=== PATIENT | male | born 1965 | race Caucasian/White ===

== ENCOUNTER 2017-12-02 13:15 | Emergency (ER) | payer MEDICARE ==
[~2017-12-02] VITALS: Ht 167.6 cm; Wt 77.3 kg
[~2017-12-02 13:15] MED LIST: NOCURR
[2017-12-02 13:22] VITALS: BP 123/79
[2017-12-02 14:11] LABS: APPEARANCE,URINE CLEAR (CLEAR); BILIRUBIN,URINE NEGATIVE (NEGATIVE); GLUCOSE, URINE (UA) NEGATIVE (NEGATIVE); KETONES,URINE NEGATIVE (NEGATIVE); LEUKOCYTE ESTERASE ,URINE NEGATIVE (NEGATIVE); NITRATE,URINE NEGATIVE (NEGATIVE); OCCULT BLOOD,URINE NEGATIVE (NEGATIVE); PROTEIN,URINE NEGATIVE (NEGATIVE); UROBILINOGEN,URINE 0.2 mg/dL (<=1.0)
[2017-12-02] MEDS ORDERED: IBUPROFEN 600 MG TABLET PO ONE (14:30)
[2017-12-02] MEDS ORDERED: AZITHROMYCIN 250 MG TABLET PO ONE (14:30)
[2017-12-02] MEDS ORDERED: CefTRIAXone SODIUM 1 GM/VIAL IM ONE (14:30)
[2017-12-02 14:32] LABS: BACTERIA,URINE None Seen /HPF (None Seen); RBC,URINE None Seen /HPF (0-2); RENAL EPITHELIAL CELLS,URINE Few /LPF (None Seen); WBC,URINE None Seen /HPF (0-5)
[2017-12-02] MEDS ORDERED: LIDOCAINE HCL/PF 1% 2 ML VIAL ONE (14:35)
== END 2017-12-02 15:19 | disposition home or self-care (01) ==
LOC: EMS 13:17
DX: N45.1 Epididymitis (principal)
CPT/HCPCS: 76870; 81001; 87491; 87591; 99285; J0696; J3490

== ENCOUNTER 2018-08-17 10:39 | Emergency (ER) | payer OTHER, MEDICAID ==
[~2018-08-17] VITALS: Ht 165.1 cm; Wt 77.3 kg
[2018-08-17] MEDS ORDERED: PANT40TA25 PO (10:44)
[2018-08-17] MEDS ORDERED: QUET200T PO (10:44)
[2018-08-17 11:13] VITALS: BP 140/90
== END 2018-08-17 11:48 | disposition home or self-care (01) ==
LOC: EMS 10:40
DX: L25.9 Unspecified contact dermatitis, unspecified cause (principal); K64.4 Residual hemorrhoidal skin tags; Z79.899 Other long term (current) drug therapy

== ENCOUNTER 2019-07-22 09:03 | Emergency (ER) | payer OTHER ==
[~2019-07-22] VITALS: Ht 167.6 cm; Wt 75.0 kg
[~2019-07-22 09:03] MED LIST changes: +DIVA-78 PO; +FERR-89 PO; -NOCURR; +OMEG-135 PO; +QUET300T2 PO; +SERT50TA12 PO
[2019-07-22] MEDS ORDERED: FentaNYL CITRATE-PF 100 MCG/2 ML VIAL IVP ONE (09:08)
[2019-07-22] MEDS ORDERED: LIDOCAINE/PF 2% 5 ML VIAL IM ONE (09:08)
[2019-07-22] MEDS ORDERED: PROPOFOL 1% 20 ML VIAL IVP ONE ×2 (09:08→15:00)
[2019-07-22] MEDS ORDERED: OxyCODONE HCL/ACETAMINOPHEN 5-325 MG TABLET PO ONE ×2 (09:45→10:30)
[2019-07-22] MEDS ORDERED: MORPHINE SULFATE 4 MG/ML SYRINGE IVP ONE (10:30)
[2019-07-22] MEDS ORDERED: AmLODIPine BESYLATE 5 MG TABLET PO ONE (11:30)
[2019-07-22] MEDS ORDERED: HYDROmorphone 2 MG/ML SYRINGE IVP ONE ×2 (12:30→13:30)
[2019-07-22] MEDS ORDERED: SODIUM CHLORIDE 0.9% 1,000 ML IV ONE (15:15)
[2019-07-22 17:55] VITALS: BP 154/94
== END 2019-07-22 18:06 | disposition home or self-care (01) ==
LOC: EMS 09:07
DX: S82.841A Displaced bimalleolar fracture of right lower leg, initial encounter for closed fracture (principal); S93.121A Dislocation of metatarsophalangeal joint of right great toe, initial encounter; W11.XXXA Fall on and from ladder, initial encounter; Y93.89 Activity, other specified; Y92.89 Other specified places as the place of occurrence of the external cause; Y99.8 Other external cause status
CPT/HCPCS: 27810; 28630; 29505; 73590; 73610; 73630; 93005; 96374; 96375; 96376; 99285; J1170; J2270; J2704; J3010; J3490

== ENCOUNTER 2020-05-07 12:56 | Emergency (ER) | payer OTHER ==
[~2020-05-07] VITALS: Ht 167.6 cm; Wt 73.4 kg
[~2020-05-07 12:56] MED LIST changes: +DIVA-112 PO; -DIVA-78 PO
[2020-05-07 13:35] LABS: BASOPHILS % (AUTO) 1.1 % (0.0-2.0); EOSINOPHILS % (AUTO) 0.3 % (1.0-6.0); HEMOGLOBIN 14.2 g/dL (13.5-17.5); LYMPHOCYTES # (AUTO) 1.1 K/uL (1.0-4.8); MEAN CORPUSCULAR HGB CONC 33.8 G/dL (31.0-37.0); MEAN CORPUSCULAR VOLUME 101 fL (80-100); MONOCYTES # (AUTO) 0.4 K/uL (0.1-1.0); NEUTROPHILS # (AUTO) 2.5 K/uL (1.8-7.7); NEUTROPHILS % (AUTO) 61.6 % (40.0-70.0); PLATELET COUNT (AUTO) 168 K/uL (150-450); RED BLOOD CELL COUNT(AUTO) 4.17 MIL/uL (4.50-5.90)
[2020-05-07 13:44] LABS: ANION GAP 16 mmol/L (8-16); CALCIUM, TOTAL 9.4 mg/dL (8.8-10.5); CARBON DIOXIDE 24 mmol/L (22-29); CHLORIDE 101 mmol/L (98-107); CREATININE 0.67 mg/dL (0.60-1.30); GLOMERULAR FILTR. RATE CALC > 60 mL/min (>60); GLUCOSE,RANDOM 137 mg/dL (70-110); POTASSIUM 3.2 mmol/L (3.5-5.1); SODIUM SERUM 141 mmol/L (136-145); UREA NITROGEN, BLOOD 11 mg/dL (7-18)
[2020-05-07 13:50] LABS: ALANINE AMINOTRANSFERASE 130 U/L (12-78); ALBUMIN 3.8 g/dL (3.4-5.0); ALKALINE PHOSPHATASE 84 U/L (46-116); ASPARTATE AMINOTRANSFERASE 194 U/L (15-37); BILIRUBIN,TOTAL 1.4 mg/dL (0.1-1.0); LIPASE 227 U/L (73-393); TOTAL PROTEIN, SERUM 7.8 g/dL (6.4-8.2)
[2020-05-07 13:52] LABS: B-TYPE NATRIURETIC PEPTIDE < 5 pg/mL (0-100)
[2020-05-07 14:37] LABS: AMPHET/METH SCREEN,URINE NEGATIVE (NEGATIVE); BARBITURATE SCREEN, URINE NEGATIVE (NEGATIVE); BENZODIAZEPINES SCREEN,URINE NEGATIVE (NEGATIVE); CANNABINOID SCREEN,URINE NEGATIVE (NEGATIVE); COCAINE SCREEN,URINE NEGATIVE (NEGATIVE); METHADONE SCREEN, URINE NEGATIVE (NEGATIVE); OPIATE SCREEN,URINE NEGATIVE (NEGATIVE)
[2020-05-07 14:38] LABS: PHENCYCLIDINE SCREEN,URINE NEGATIVE (NEGATIVE)
[2020-05-07] MEDS ORDERED: FAMOTIDINE 10 MG/ML 2 ML VIAL IVP ONE (14:45)
[2020-05-07] MEDS ORDERED: PB/HYOSCY/ATR/SCOP/LIDO/MAALOX 55 ML BOTTLE PO ONE (14:45)
[2020-05-07] MEDS ORDERED: LORazepam 2 MG TABLET PO ONE (15:00)
[2020-05-07] MEDS ORDERED: LORazepam 2 MG/ML VIAL IM ONE (15:00)
[2020-05-07] MEDS ORDERED: LORazepam 2 MG/ML VIAL IVP ONE (15:00)
[2020-05-07] MEDS ORDERED: POTASSIUM CHLORIDE 20 MEQ ER TABLET PO ONE (15:00)
[2020-05-07] MEDS ORDERED: FAMOTIDINE 20 MG TABLET PO ONE (15:00)
[2020-05-07] MEDS ORDERED: SODIUM CHLORIDE 0.9% 100 ML ONE (15:06)
[2020-05-07] MEDS ORDERED: IOVERSOL 350 MG/ML 150 ML VIAL ONE (15:07)
[2020-05-07] MEDS ORDERED: SODIUM CHLORIDE 0.9% 1,000 ML IV ONE (16:30)
[2020-05-07 17:45] VITALS: BP 121/80
== END 2020-05-07 18:00 | disposition home or self-care (01) ==
LOC: EMS 12:58
DX: K29.20 Alcoholic gastritis without bleeding (principal); F10.129 Alcohol abuse with intoxication, unspecified; K70.10 Alcoholic hepatitis without ascites; E87.6 Hypokalemia; R41.82 Altered mental status, unspecified; K22.9 Disease of esophagus, unspecified; F31.9 Bipolar disorder, unspecified; I25.10 Atherosclerotic heart disease of native coronary artery without angina pectoris; F20.9 Schizophrenia, unspecified; Y90.7 Blood alcohol level of 200-239 mg/100 ml
CPT/HCPCS: 36415; 71045; 71275; 74175; 80053; 80307; 83690; 83880; 84484; 85025; 93005; 96361; 96374; 99285; G0480; J3490; J7030; J7050; Q9967; J2060

== ENCOUNTER 2024-01-17 14:10 | Inpatient (IN) | payer MEDICARE, OTHER ==
[~2024-01-17] VITALS: Ht 165.1 cm; Wt 68.8 kg
[2024-01-17 14:31] LABS: BASOPHILS % (AUTO) 0.1 % (0.0-2.0); EOSINOPHILS % (AUTO) 0.2 % (1.0-6.0); HEMATOCRIT 41.8 % (41-53); HEMOGLOBIN 14.8 g/dL (13.5-17.5); LYMPHOCYTES # (AUTO) 1.4 K/uL (1.0-4.8); LYMPHOCYTES % (AUTO) 16.9 % (22.0-44.0); MEAN CORPUSCULAR HEMOGLOBIN 35.5 pg (26.0-34.0); MEAN CORPUSCULAR HGB CONC 35.4 G/dL (31.0-37.0); MEAN CORPUSCULAR VOLUME 100 fL (80-100); MONOCYTES # (AUTO) 0.7 K/uL (0.1-1.0); MONOCYTES % (AUTO) 8.7 % (2.0-9.0); NEUTROPHILS # (AUTO) 6.3 K/uL (1.8-7.7); NEUTROPHILS % (AUTO) 74.1 % (40.0-70.0); PLATELET COUNT (AUTO) 254 K/uL (150-450); RED BLOOD CELL COUNT(AUTO) 4.16 MIL/uL (4.50-5.90); RED CELL DISTRIBUTION WIDTH 13.1 % (11.5-14.5); WHITE BLOOD COUNT (AUTO) 8.4 K/uL (4.5-11.0)
[2024-01-17 14:46] LABS: ALANINE AMINOTRANSFERASE 27 U/L (12-78); ALBUMIN 3.3 g/dL (3.4-5.0); ALKALINE PHOSPHATASE 91 U/L (46-116); ANION GAP 15 mmol/L (8-16); ASPARTATE AMINOTRANSFERASE 18 U/L (15-37); BILIRUBIN,TOTAL 1.6 mg/dL (0.1-1.0); CARBON DIOXIDE 24 mmol/L (22-29); CHLORIDE 94 mmol/L (98-107); CREATININE 0.67 mg/dL (0.60-1.30); GLOMERULAR FILTR. RATE CALC > 60 mL/min (>60); GLUCOSE,RANDOM 85 mg/dL (70-110); POTASSIUM 2.9 mmol/L (3.5-5.1); SODIUM SERUM 133 mmol/L (136-145); UREA NITROGEN, BLOOD 7 mg/dL (7-18)
[2024-01-17 14:52] LABS: ALCOHOL, BLOOD (SERUM) 64 mg/dL (0-10)
[2024-01-17 14:56] LABS: RBC MORPHOLOGY COMMENT ABNORMAL RBC MORPH
[2024-01-17 17:03] LABS: PH,URINE DRUG SCREEN 5.5 (5.0-8.0)
[2024-01-17 17:18] LABS: ALCOHOL, URINE DRUG SCREEN POSITIVE (NEGATIVE); AMPHET/METH SCREEN,URINE NEGATIVE (NEGATIVE); BARBITURATE SCREEN, URINE NEGATIVE (NEGATIVE); BENZODIAZEPINES SCREEN,URINE NEGATIVE (NEGATIVE); CANNABINOID SCREEN,URINE POSITIVE (NEGATIVE); COCAINE SCREEN,URINE NEGATIVE (NEGATIVE); METHADONE SCREEN, URINE NEGATIVE (NEGATIVE); OPIATE SCREEN,URINE NEGATIVE (NEGATIVE); PHENCYCLIDINE SCREEN,URINE NEGATIVE (NEGATIVE)
[2024-01-17] MEDS: SODIUM CHLORIDE 0.9% 1,000 ML IV ONE (17:33)
[2024-01-17] MEDS: POTASSIUM CHLORIDE 20 MEQ ER TABLET PO ONE (17:45)
[2024-01-17] MEDS: FAMOTIDINE 20 MG/2 ML VIAL IVP ONE (17:55)
[2024-01-17] MEDS: ONDANSETRON HCL 4 MG/2 ML VIAL IVP ONE (17:55)
[2024-01-17] MEDS: POTASSIUM CHL 10 MEQ/WATER 50 ML IV ONE (17:56)
[2024-01-17] MEDS: LORazepam 2 MG/ML VIAL IVP ONE (18:39)
[2024-01-17] MEDS ORDERED: ONDANSETRON HCL 4 MG/2 ML VIAL IVP PRN (18:45)
[2024-01-17] MEDS ORDERED: ACETAMINOPHEN 325 MG TABLET PO PRN (18:45)
[2024-01-17] MEDS ORDERED: 0.9% SODIUM CHLORIDE 10 ML SYRINGE IVP PRN (18:45)
[2024-01-17 18:55] LABS: COVID AG,FIA SOURCE NASAL SWAB
[2024-01-17 19:20] LABS: SARS-COV2 (COVID) ANTIGEN,FIA Negative (Negative)
[2024-01-17] MEDS ORDERED: BISACODYL 10 MG RECTAL RECTAL SUPPOSITORY PR PRN (21:45)
[2024-01-17] MEDS ORDERED: DIAZEPAM 10 MG TABLET PO PRN (21:45)
[2024-01-17] MEDS ORDERED: MORPHINE SULFATE 2 MG/ML SYRINGE IVP PRN (21:45)
[2024-01-17] MEDS ORDERED: POTASSIUM CHL 10 MEQ/WATER 50 ML IV PRN (21:45)
[2024-01-17] MEDS: 1: MAGNESIUM SULFATE 2 GM, MVI, ADULT NO.1 WITH VIT K 10 ML, THIAMINE 100 MG, FOLIC ACID IV SCH (23:16)
[2024-01-18] MEDS: HEPARIN SODIUM,PORCINE 5,000 UNITS/ML VIAL SQ SCH (00:14)
[2024-01-18 04:57] VITALS: BP 129/80; PULSE 93; RESP 18; TEMP 101.3
[2024-01-18 07:45] LABS: BASOPHILS % (AUTO) 0.2 % (0.0-2.0); EOSINOPHILS % (AUTO) 0.1 % (1.0-6.0); HEMOGLOBIN 13.4 g/dL (13.5-17.5); LYMPHOCYTES # (AUTO) 0.8 K/uL (1.0-4.8); LYMPHOCYTES % (AUTO) 6.5 % (22.0-44.0); MEAN CORPUSCULAR HEMOGLOBIN 35.3 pg (26.0-34.0); MEAN CORPUSCULAR HGB CONC 35.4 G/dL (31.0-37.0); MEAN CORPUSCULAR VOLUME 100 fL (80-100); MONOCYTES % (AUTO) 8.3 % (2.0-9.0); NEUTROPHILS # (AUTO) 10.2 K/uL (1.8-7.7); NEUTROPHILS % (AUTO) 84.9 % (40.0-70.0); PLATELET COUNT (AUTO) 252 K/uL (150-450); RED CELL DISTRIBUTION WIDTH 13.1 % (11.5-14.5)
[2024-01-18 08:54] VITALS: BP 121/64; PULSE 86; RESP 20; TEMP 98.7
[2024-01-18] MEDS: ACETAMINOPHEN 325 MG TABLET PO PRN (08:57)
[2024-01-18] MEDS: DOCUSATE SODIUM 100 MG CAPSULE PO SCH (08:57)
[2024-01-18] MEDS: PANTOPRAZOLE SODIUM 40 MG DR TABLET PO SCH (08:57)
[2024-01-18] MEDS: DIAZEPAM 10 MG TABLET PO SCH (08:58)
[2024-01-18 10:58] LABS: LACTIC ACID 1.2 mmol/L (0.4-2.0)
[2024-01-18 11:05] LABS: ALANINE AMINOTRANSFERASE 23 U/L (12-78); ALBUMIN 2.8 g/dL (3.4-5.0); ALKALINE PHOSPHATASE 94 U/L (46-116); ANION GAP 16 mmol/L (8-16); ASPARTATE AMINOTRANSFERASE 21 U/L (15-37); BILIRUBIN,TOTAL 2.2 mg/dL (0.1-1.0); CALCIUM, TOTAL 8.5 mg/dL (8.8-10.5); CARBON DIOXIDE 19 mmol/L (22-29); CHLORIDE 94 mmol/L (98-107); CREATININE 0.66 mg/dL (0.60-1.30); GLOMERULAR FILTR. RATE CALC > 60 mL/min (>60); GLUCOSE,RANDOM 92 mg/dL (70-110); POTASSIUM 3.8 mmol/L (3.5-5.1); SODIUM SERUM 129 mmol/L (136-145); TOTAL PROTEIN, SERUM 6.9 g/dL (6.4-8.2); UREA NITROGEN, BLOOD 9 mg/dL (7-18)
[2024-01-18] MEDS: ONDANSETRON HCL 4 MG/2 ML VIAL IVP PRN (11:55)
[2024-01-18 12:20] LABS: APPEARANCE,URINE CLEAR (CLEAR); BILIRUBIN,URINE NEGATIVE (NEGATIVE); COLOR,URINE LIGHT YELLOW (YELLOW); GLUCOSE, URINE (UA) NEGATIVE (NEGATIVE); LEUKOCYTE ESTERASE ,URINE NEGATIVE (NEGATIVE); NITRATE,URINE NEGATIVE (NEGATIVE); OCCULT BLOOD,URINE NEGATIVE (NEGATIVE); PROTEIN,URINE NEGATIVE (NEGATIVE); SPECIFIC GRAVITIY, URINE 1.009 (1.003-1.030); UROBILINOGEN,URINE <=1.0 mg/dL (<=1.0)
[2024-01-18 12:59] VITALS: BP 144/83; PULSE 90; RESP 20; TEMP 98
[2024-01-18] MEDS: ESCITALOPRAM OXALATE 10 MG TABLET PO SCH (14:55)
[2024-01-18 15:31] VITALS: BP 113/76; PULSE 71; RESP 20; TEMP 98.2
[2024-01-18 19:49] VITALS: BP 124/77; PULSE 97; RESP 18; TEMP 98
[2024-01-18] MEDS: MELATONIN 5 MG TABLET PO SCH (20:41)
[2024-01-18] MEDS: MAGNESIUM HYDROXIDE SUSPENSION 30 ML UDCUP PO PRN (20:43)
[2024-01-18] MEDS: HYDROCODONE/ACETAMINOPHEN 5-325 MG TABLET PO PRN (20:50)
[2024-01-18 21:41] LABS: GLUCOMETER DEV NAME(LOC) 5S.1B; GLUCOSE,POINT OF CARE 97 MG/DL (70-110)
[2024-01-18] MEDS: ZOLPIDEM TARTRATE 5 MG TABLET PO PRN (22:50)
[2024-01-18] MEDS: DIAZEPAM 10 MG TABLET PO PRN (22:50)
[2024-01-19] VITALS (7 sets, daily range): BP systolic 121–179; BP diastolic 75–97; PULSE 66–105; RESP 18–19; TEMP 98–100.5; O2SAT 94
[2024-01-19] MEDS ORDERED: HALOPERIDOL LACTATE 5 MG/ML VIAL IM PRN (04:15)
[2024-01-19 06:50] LABS: BASOPHILS % (AUTO) 0.3 % (0.0-2.0); EOSINOPHILS % (AUTO) 0.1 % (1.0-6.0); HEMATOCRIT 37.3 % (41-53); HEMOGLOBIN 13.3 g/dL (13.5-17.5); LYMPHOCYTES # (AUTO) 1.2 K/uL (1.0-4.8); LYMPHOCYTES % (AUTO) 9.3 % (22.0-44.0); MEAN CORPUSCULAR HEMOGLOBIN 35.7 pg (26.0-34.0); MEAN CORPUSCULAR HGB CONC 35.7 G/dL (31.0-37.0); MEAN CORPUSCULAR VOLUME 100 fL (80-100); MONOCYTES # (AUTO) 1.4 K/uL (0.1-1.0); MONOCYTES % (AUTO) 11.6 % (2.0-9.0); NEUTROPHILS # (AUTO) 9.8 K/uL (1.8-7.7); NEUTROPHILS % (AUTO) 78.7 % (40.0-70.0); PLATELET COUNT (AUTO) 275 K/uL (150-450); RED BLOOD CELL COUNT(AUTO) 3.73 MIL/uL (4.50-5.90); WHITE BLOOD COUNT (AUTO) 12.5 K/uL (4.5-11.0)
[2024-01-19 07:02] LABS: ANION GAP 9 mmol/L (8-16); CALCIUM, TOTAL 8.5 mg/dL (8.8-10.5); CARBON DIOXIDE 26 mmol/L (22-29); CHLORIDE 94 mmol/L (98-107); CREATININE 0.71 mg/dL (0.60-1.30); GLOMERULAR FILTR. RATE CALC > 60 mL/min (>60); GLUCOSE,RANDOM 103 mg/dL (70-110); POTASSIUM 3.3 mmol/L (3.5-5.1); SODIUM SERUM 129 mmol/L (136-145); UREA NITROGEN, BLOOD 8 mg/dL (7-18)
[2024-01-19] MEDS: POTASSIUM CHLORIDE 20 MEQ ER TABLET PO PRN (09:57)
[2024-01-19] MEDS: QUEtiapine FUMARATE 25 MG TABLET PO SCH (21:31)
[2024-01-20] VITALS (7 sets, daily range): BP systolic 111–119; BP diastolic 61–80; PULSE 86–92; RESP 18–22; TEMP 97.8–99.2
[2024-01-20] MEDS ORDERED: SODIUM CHLORIDE 0.9% 1,000 ML ONE (00:06)
[2024-01-20 08:10] LABS: BASOPHILS % (AUTO) 0.5 % (0.0-2.0); EOSINOPHILS % (AUTO) 0.3 % (1.0-6.0); HEMATOCRIT 38.6 % (41-53); HEMOGLOBIN 13.3 g/dL (13.5-17.5); LYMPHOCYTES # (AUTO) 1.2 K/uL (1.0-4.8); LYMPHOCYTES % (AUTO) 12.1 % (22.0-44.0); MEAN CORPUSCULAR HEMOGLOBIN 35.6 pg (26.0-34.0); MEAN CORPUSCULAR HGB CONC 34.5 G/dL (31.0-37.0); MEAN CORPUSCULAR VOLUME 103 fL (80-100); MONOCYTES % (AUTO) 10.7 % (2.0-9.0); NEUTROPHILS # (AUTO) 7.4 K/uL (1.8-7.7); NEUTROPHILS % (AUTO) 76.4 % (40.0-70.0); PLATELET COUNT (AUTO) 259 K/uL (150-450); RED BLOOD CELL COUNT(AUTO) 3.75 MIL/uL (4.50-5.90); RED CELL DISTRIBUTION WIDTH 13.4 % (11.5-14.5); WHITE BLOOD COUNT (AUTO) 9.6 K/uL (4.5-11.0)
[2024-01-20] MEDS: DIAZEPAM 5 MG TABLET PO SCH (08:18)
[2024-01-20 08:25] LABS: ANION GAP 12 mmol/L (8-16); CALCIUM, TOTAL 8.6 mg/dL (8.8-10.5); CARBON DIOXIDE 22 mmol/L (22-29); CHLORIDE 98 mmol/L (98-107); CREATININE 0.65 mg/dL (0.60-1.30); GLOMERULAR FILTR. RATE CALC > 60 mL/min (>60); GLUCOSE,RANDOM 120 mg/dL (70-110); POTASSIUM 3.7 mmol/L (3.5-5.1); SODIUM SERUM 132 mmol/L (136-145); UREA NITROGEN, BLOOD 6 mg/dL (7-18)
[2024-01-20] MEDS ORDERED: 1: MAGNESIUM SULFATE 2 GM, MVI, ADULT NO.1 WITH VIT K 10 ML, THIAMINE 100 MG, FOLIC ACID IV SCH (18:00)
[2024-01-20] MEDS: DIAZEPAM 5 MG TABLET PO PRN (22:51)
[2024-01-21] MEDS: DIAZEPAM 5 MG TABLET PO PRN (08:13)
[2024-01-21 09:06] LABS: BASOPHILS % (AUTO) 0.6 % (0.0-2.0); EOSINOPHILS % (AUTO) 0.8 % (1.0-6.0); HEMATOCRIT 40.3 % (41-53); HEMOGLOBIN 13.8 g/dL (13.5-17.5); LYMPHOCYTES # (AUTO) 1.3 K/uL (1.0-4.8); LYMPHOCYTES % (AUTO) 16.3 % (22.0-44.0); MEAN CORPUSCULAR HGB CONC 34.2 G/dL (31.0-37.0); MEAN CORPUSCULAR VOLUME 102 fL (80-100); MONOCYTES # (AUTO) 0.8 K/uL (0.1-1.0); MONOCYTES % (AUTO) 9.3 % (2.0-9.0); PLATELET COUNT (AUTO) 323 K/uL (150-450); RED BLOOD CELL COUNT(AUTO) 3.94 MIL/uL (4.50-5.90); RED CELL DISTRIBUTION WIDTH 13.6 % (11.5-14.5); WHITE BLOOD COUNT (AUTO) 8.2 K/uL (4.5-11.0)
[2024-01-21 09:14] LABS: ANION GAP 8 mmol/L (8-16); CALCIUM, TOTAL 8.6 mg/dL (8.8-10.5); CARBON DIOXIDE 27 mmol/L (22-29); CHLORIDE 100 mmol/L (98-107); CREATININE 0.75 mg/dL (0.60-1.30); GLOMERULAR FILTR. RATE CALC > 60 mL/min (>60); GLUCOSE,RANDOM 95 mg/dL (70-110); POTASSIUM 3.9 mmol/L (3.5-5.1); SODIUM SERUM 135 mmol/L (136-145); UREA NITROGEN, BLOOD 8 mg/dL (7-18)
[2024-01-21 10:46] LABS: RBC MORPHOLOGY COMMENT ABNORMAL RBC MORPH
[2024-01-21] MEDS ORDERED: GADOTERATE MEGLUMINE 10 MMOL/20 ML VIAL IVP ONE (11:07)
[2024-01-21 15:42] VITALS: BP 125/91; PULSE 80; RESP 18; TEMP 98.8
[2024-01-21 21:04] VITALS: BP 138/82; PULSE 94; RESP 19; TEMP 99.2
[2024-01-21] MEDS ORDERED: HEPARIN SODIUM,PORCINE 5,000 UNITS/ML VIAL SQ SCH (21:15)
[2024-01-22] MEDS ORDERED: LORazepam 2 MG/ML VIAL ONE (00:38)
[2024-01-22] MEDS ORDERED: HALOPERIDOL LACTATE 5 MG/ML VIAL ONE (00:38)
[2024-01-22] MEDS ORDERED: DiphenhydrAMINE HCL 50 MG/ML VIAL ONE (00:39)
[2024-01-22] MEDS: HALOPERIDOL LACTATE 5 MG/ML VIAL IM ONE (00:51)
[2024-01-22] MEDS: LORazepam 2 MG/ML VIAL IVP ONE (00:52)
[2024-01-22] MEDS: DiphenhydrAMINE HCL 50 MG/ML VIAL IVP ONE (00:52)
[2024-01-22] MEDS ORDERED: SODIUM CHLORIDE 0.9% 1,000 ML ONE (04:18)
[2024-01-22 04:20] VITALS: BP 116/77; PULSE 71; RESP 20; TEMP 97.4
[2024-01-22 08:23] VITALS: BP 100/60; PULSE 69; RESP 18; TEMP 98.2
[2024-01-22 08:46] LABS: ANION GAP 7 mmol/L (8-16); CALCIUM, TOTAL 8.3 mg/dL (8.8-10.5); CARBON DIOXIDE 28 mmol/L (22-29); CHLORIDE 101 mmol/L (98-107); CREATININE 0.65 mg/dL (0.60-1.30); GLOMERULAR FILTR. RATE CALC > 60 mL/min (>60); GLUCOSE,RANDOM 122 mg/dL (70-110); POTASSIUM 3.7 mmol/L (3.5-5.1); SODIUM SERUM 136 mmol/L (136-145); UREA NITROGEN, BLOOD 8 mg/dL (7-18)
[2024-01-22 14:10] LABS: COVID AG,FIA SOURCE NASAL SWAB
[2024-01-22 14:28] LABS: SARS-COV2 (COVID) ANTIGEN,FIA Negative (Negative)
[2024-01-22 16:00] VITALS: BP 112/69; PULSE 66; RESP 18; TEMP 98.1
[2024-01-22 16:43] VITALS: BP 112/69; PULSE 66; RESP 18; TEMP 98.1
[2024-01-30] MEDS ORDERED: QUET25TA PO (13:17)
[2024-01-30] MEDS ORDERED: ESCI-8 PO (13:17)
[2024-01-30] MEDS ORDERED: PANT-31 PO (13:19)
== END 2024-01-22 17:00 | DRG 640 ==
LOC: EMS 14:26 → 5S 23:00 → 6S 01-20 23:30
PROVIDERS: ADMIT Internal Medicine; ATTEND Internal Medicine
DX: E87.6 Hypokalemia (principal); G93.41 Metabolic encephalopathy; F33.2 Major depressive disorder, recurrent severe without psychotic features; R45.851 Suicidal ideations; R47.01 Aphasia; F10.239 Alcohol dependence with withdrawal, unspecified; Z59.00 Homelessness unspecified; S42.309A Unspecified fracture of shaft of humerus, unspecified arm, initial encounter for closed fracture; K29.20 Alcoholic gastritis without bleeding; F12.90 Cannabis use, unspecified, uncomplicated; K29.00 Acute gastritis without bleeding; E87.1 Hypo-osmolality and hyponatremia; Z20.822 Contact with and (suspected) exposure to COVID-19; F20.9 Schizophrenia, unspecified; G47.00 Insomnia, unspecified; F41.0 Panic disorder [episodic paroxysmal anxiety]; Y90.3 Blood alcohol level of 60-79 mg/100 ml; I25.10 Atherosclerotic heart disease of native coronary artery without angina pectoris; Z79.899 Other long term (current) drug therapy
CPT/HCPCS: 70450; 70553; 71045; 76705; 80048; 80053; 80307; 81003; 82962; 83605; 83690; 84132; 85025; 87040; 99285; G0480; J1200; J1630; J1644; J2060; J2405; J3411; J3475; J3480; J3490; J7030; Q9967; 36415-L1; 36415-TC

== ENCOUNTER 2024-02-01 11:27 | Emergency (ER) | payer MEDICARE ==
[~2024-02-01] VITALS: Ht 170.2 cm; Wt 75.0 kg
[~2024-02-01 11:27] MED LIST changes: -DIVA-112 PO; +ESCI-8 PO; -FERR-89 PO; -OMEG-135 PO; +PANT-31 PO; +QUET25TA PO; -QUET300T2 PO; -SERT50TA12 PO
[2024-02-01 11:34] VITALS: BP 116/86; PULSE 79; RESP 18; TEMP 98.5
== END 2024-02-01 11:46 | disposition left against medical advice (07) ==
LOC: EMS 11:30
DX: M25.571 Pain in right ankle and joints of right foot (principal); Z53.21 Procedure and treatment not carried out due to patient leaving prior to being seen by health care provider
CPT/HCPCS: 99281; Z7502